=== PATIENT | male | born 1985 | race Caucasian/White ===

== ENCOUNTER 2016-09-16 16:41 | Emergency (ER) | payer OTHER ==
[2016-09-16 16:45] VITALS: RESP 18; TEMP 98
[2016-09-16] MEDS ORDERED: MORPHINE SULFATE 10 MG/ML SOL IV ONE (17:03)
[2016-09-16] MEDS ORDERED: ONDANSETRON HCL 4 MG/2 ML SOL IV ONE (17:03)
[2016-09-16] MEDS ORDERED: SODIUM CHLORIDE 0.9% 1000ML 1,000 ML IV SCH (17:15)
[2016-09-16] MEDS ORDERED: MORPHINE SULFATE 10 MG/ML SOL ONE (17:21)
[2016-09-16] MEDS ORDERED: ONDANSETRON HCL 4 MG/2 ML SOL ONE (17:21)
[2016-09-16 17:58] LABS: BASOPHILS % (AUTO) 0 % (0-3); EOSINOPHILS % (AUTO) 2 % (0-9); HEMATOCRIT 44 % (39-53); MEAN CORPUSCULAR HGB CONC 34.5 gm/dl (32.0-36.0); MEAN CORPUSCULAR VOLUME 85 fL (80-100); MONOCYTES % (AUTO) 7.7 % (0-12); NEUTROPHILS % (AUTO) 74.3 % (37-80)
[2016-09-16 18:12] LABS: ALBUMIN 3.7 gm/dl (3.4-5.0); CALCIUM 8.4 mg/dl (8.5-10.1); POTASSIUM 4.3 mMol/L (3.5-5.1)
[2016-09-16 19:55] VITALS: BP 133/82; PULSE 79; O2SAT 99
== END 2016-09-16 19:45 | disposition home or self-care (01) | DRG 392 ==
LOC: ED 16:41
DX: K52.9 Noninfective gastroenteritis and colitis, unspecified (principal)
CPT/HCPCS: 36415; 74177; 80053; 82150; 85025; 96365; 96374; 96375; 99283; 99285; J2270; J2405; Q9967